=== PATIENT | female | born 1940 | race Caucasian/White ===

== ENCOUNTER 2021-03-14 14:58 | Outpatient (CLI) | payer MEDICARE, SELFPAY ==
[2021-03-14 15:13] VITALS: BP 172/78; PULSE 93; RESP 16; TEMP 36.6; O2SAT 99; BMI 34.0
[2021-03-14] MEDS: 0.9% Saline Lock 10 ML Syringe IV (15:21)
[2021-03-14 15:52] VITALS: BP 150/76; PULSE 82; RESP 16; TEMP 36.9; O2SAT 98
[2021-03-14 16:43] VITALS: BP 151/74; PULSE 79; RESP 16; TEMP 37; O2SAT 99
== END 2021-03-14 16:52 | disposition home or self-care (01) ==
LOC: MS3OUT 14:58 → MS3 14:58
PROVIDERS: Referring Provider Nurse Practitioner Adult Health; Visit Provider Nurse Practitioner Adult Health
DX: Z23 Encounter for immunization (principal); U07.1 COVID-19
CPT/HCPCS: J7050; M0245; Q0245; A4216